=== PATIENT | female | born 1965 | race Caucasian/White ===

== ENCOUNTER 2017-08-21 18:59 | Emergency (ER) | payer BC ==
[2017-08-21 19:35] VITALS: BP 134/70; PULSE 91; RESP 18; TEMP 98.1
--- NOTE | 2017-08-21 20:07 | ED ---
General Adult HPI - General Chief complaint: Fall Stated complaint: left arm injury from fall Time Seen by Provider: 08/21/17 19:56 Source: patient, RN notes reviewed Mode of arrival: ambulatory Limitations: no limitations - History of Present Illness Initial comments: Patient is a 51-year-old female who presents emergency room today with a chief complaint of an injury to the left wrist and elbow area. She does admit that she tripped earlier on outstretched arm. She states that she's having tenderness to this area worse with movements. She denies any head injury or loss conscious. Denies any other complaints or associated symptoms. Patient denies any recent fever, chills, shortness of breath, chest pain, back pain, abdominal pain, nausea or vomiting, numbness or tingling, dysuria or hematuria, constipation or diarrhea, headaches or visual changes, or any other complaints. - Related Data Previous Rx's Medication Instructions Recorded Hydrocodone/Acetaminophen [[place] 1 each PO Q6HR PRN #20 tab 08/21/17 5325] Allergies Allergy/AdvReac Type Severity Reaction Status Date / Time No Known Allergies Allergy Verified 08/21/17 19:35 Review of Systems ROS Statement: Those systems with pertinent positive or pertinent negative responses have been documented in the HPI. ROS Other: All systems not noted in ROS Statement are negative. Past Medical History Past Medical History: No Reported History History of Any Multi-Drug Resistant Organisms: None Reported Past Surgical History: Cholecystectomy Past Psychological History: No Psychological Hx Reported Smoking Status: Former smoker Past Alcohol Use History: None Reported Past Drug Use History: None Reported General Exam - General Exam Comments Initial Comments: General: The patient is awake and alert, in no distress, and does not appear acutely ill. Neck: The neck is supple, there is no tenderness or JVD. Cardiovascular: There is a regular rate and rhythm. No murmur, rub or gallop is appreciated. Respiratory: Lungs are clear to auscultation, respirations are non-labored, breath sounds are equal. No wheezes, stridor, rales, or rhonchi. Musculoskeletal: Patient does have normal appearance of left wrist with no obvious deformity. Shows limited range of motion both flexion and extension due to pain. She does have tenderness over the distal radius. Does have tenderness over the proximal radius along with the medial aspect of left elbow. No tenderness to the humerus or left shoulder. No tenderness down to the left hand sensations are intact pulses equal bilaterally 2+. Neurological: A&O x 3. CN II-XII intact, There are no obvious motor or sensory deficits. Coordination appears grossly intact. Speech is normal. Skin: Skin is warm and dry and no rashes or lesions are noted. Psychiatric: Normal mood and affect. Limitations: no limitations Course Vital Signs 08/21/17 19:32 Temperature 98.1 F Pulse Rate 91 Respiratory 18 Rate Blood Pressure 134/70 O2 Sat by Pulse 98 Oximetry Medical Decision Making - Medical Decision Making X-rays reviewed does show radial head nondisplaced fracture. Patient has been splinted in a long arm posterior OCL splint given arm sling to go home with. Advised follow-up with orthopedics over the next 2 days. Disposition Clinical Impression: Elbow fracture, left Disposition: HOME SELF-CARE Condition: Good Instructions: Elbow Fracture in Adults (ED) Additional Instructions: Please see splinted in place until follow-up with orthopedics over the next 2 days. Please use arm sling when up and moving around. Please continue to ice elevate the affected area and return here to the emergency room symptoms increase or worsen or for any other concerns. Prescriptions: Hydrocodone/Acetaminophen [[place] 5-325] 1 each PO Q6HR PRN #20 tab PRN Reason: Pain Referrals: Arsalan Cleary MD [Primary Care Provider] - 1-2 days Garland Pinto MD [STAFF PHYSICIAN] - 1-2 days Time of Disposition: 20:41
--- NOTE | 2017-08-21 20:24 | XR ---
EXAMINATION TYPE: XR elbow complete LT, XR forearm LT DATE OF EXAM: 08/21/2017 CLINICAL HISTORY: pain TECHNIQUE: Frontal, lateral and oblique images of the left elbow are obtained. 2 views of the left f orearm are also submitted. COMPARISON: None. FINDINGS: Mildly comminuted and mildly displaced radial head fracture. No additional fracture seen. P athologic fat pad noted. The overlying soft tissue appears unremarkable. IMPRESSION: Mildly comminuted and mildly displaced radial head fracture. ICD 10 closed FRACTURE, INITIAL EVALUATION
--- NOTE | 2017-08-21 20:25 | XR ---
EXAMINATION TYPE: XR wrist complete LT DATE OF EXAM: 08/21/2017 CLINICAL HISTORY: pain TECHNIQUE: Frontal, lateral and oblique images of the left wrist are obtained. COMPARISON: None. FINDINGS: There is no acute fracture/dislocation evident. The joint spaces appear within normal bermudez its. The overlying soft tissue appears unremarkable. IMPRESSION: There is no acute fracture or dislocation seen. ICD 10 NO FRACTURE, INITIAL EVALUATION
== END 2017-08-21 21:05 | disposition home or self-care (01) ==
LOC: EC 18:59
DX: S52.125A Nondisplaced fracture of head of left radius, initial encounter for closed fracture (principal); Z87.891 Personal history of nicotine dependence; W01.0XXA Fall on same level from slipping, tripping and stumbling without subsequent striking against object, initial encounter; Y93.01 Activity, walking, marching and hiking
CPT/HCPCS: 29105; 99283

== ENCOUNTER 2020-05-12 09:41 | Day surgery (SDC) | payer BC ==
[2020-05-10 11:51] VITALS: BMI 38.8
[~2020-05-12 09:41] MED LIST: LACTATED RINGERS 1,000 ML IV SCH
[2020-05-12] MEDS ORDERED: LIDOCAINE 1% (10MG/ML) FOR IV START INTRADERMA ONE (10:17)
[2020-05-12 10:20] VITALS: RESP 16; TEMP 96.9
[2020-05-12] MEDS ORDERED: PROPOFOL 10 MG/ML 20 ML VIAL IV ONE (10:32)
--- NOTE | 2020-05-12 11:11 | P.PCN ---
Date of Procedure: 05/12/20 Description of Procedure: BRIEF HISTORY: Patient is a 54-year-old female presenting for outpatient colonoscopy for a positive Cologard. No prior colonoscopy. No change in bowel habits, blood per rectum or abdominal. PROCEDURE PERFORMED: Colonoscopy with polypectomy. PREOPERATIVE DIAGNOSIS: Positive Cologard, no prior colonoscopy. ESTIMATED BLOOD LOSS: Minimal. IV sedation per Anesthesia. PROCEDURE: After informed consent was obtained, the patient, was brought into the endoscopy unit. IV sedation was administered by Anesthesia under continuous monitoring. Digital rectal examination was normal. Initially the Olympus CF-190 flexible video colonoscope was then inserted in the rectum, gradually advanced into the cecum without any difficulty. Careful examination was performed as the scope was gradually being withdrawn. Ileocecal valve and the appendiceal orifice were visualized and appeared normal. Prep was excellent. Mucosa of the cecum, ascending colon, transverse colon, descending colon, sigmoid colon, and rectum appeared normal. A small 3 mm descending colon polyp removed with cold forceps polypectomy. Diminutive 2 mm ascending colon polyp removed with cold forcep polypectomy. Diminutive 2 mm transverse colon polyp removed with cold forcep polypectomy. 3 diminutive rectal polyp was 2 mm in size. Polypectomy. Pedunculated 4 mm sigmoid colon polyp removed with hot snare polypectomy. Retroflexion was performed in the rectum and no lesions were seen. The patient tolerated the procedure well. IMPRESSION: Pedunculated sigmoid colon polyp removed with hot snare polypectomy. 6 diminutive polyps removed from the colon, ascending colon, transverse colon and rectum with forcep polypectomy. RECOMMENDATIONS: Findings of this examination were discussed with the patient. Okay to resume diet. Okay to resume medication. Await colon. From polypectomy. Would recommend repeat colonoscopy in 3 years for high-risk colonic polyps pending pathology..
[2020-05-12 11:27] VITALS: BP 131/63; PULSE 73
== END 2020-05-12 12:11 | disposition home or self-care (01) ==
LOC: ORWHC2ENDO 09:41
PROVIDERS: ATTEND Internal Medicine
DX: K63.5 Polyp of colon (principal); D12.3 Benign neoplasm of transverse colon; D12.5 Benign neoplasm of sigmoid colon; K62.1 Rectal polyp; E78.5 Hyperlipidemia, unspecified; E07.9 Disorder of thyroid, unspecified; E66.01 Morbid (severe) obesity due to excess calories; Z87.891 Personal history of nicotine dependence; Z79.890 Hormone replacement therapy; Z79.899 Other long term (current) drug therapy; Z90.49 Acquired absence of other specified parts of digestive tract; Z90.89 Acquired absence of other organs; Z68.39 Body mass index [BMI] 39.0-39.9, adult
CPT/HCPCS: 88305; 45385; 45380; J2704

== ENCOUNTER → 2023-06-24 | Outpatient (CLI) | payer OTHER ==
--- NOTE | 2023-06-24 11:57 | MM ---
Reason for Exam: Screening (asymptomatic). Patient History: Menarche at age 11. First Full-Term at age 16. Postmenopausal. Risk Values: Clare 5 year model risk: 1.0%. NCI Lifetime model risk: 5.5%. Tissue Density: The breast tissue is almost entirely fat. Findings: Analyzed By CAD. There is no suspicious group of microcalcifications or new suspicious mass in either breast. Overall Assessment: Negative, BI-RAD 1 Management: Screening Mammogram of both breasts in [address] [facility] will attempt to contact patient to return for supplemental views and ultrasound if indicated. Patient should continue monthly self-breast exams. A clinical breast exam by your physician is recommended on an annual basis. This exam should not preclude additional follow-up of suspicious palpable abnormalities. Note on Clare scores and lifetime risk: 1. A Clare score greater than 3% is considered moderate risk. If this is the case, consider specialist referral to assess eligibility for a risk reducing agent. 2. If overall lifetime risk for the development of breast cancer is 20% or higher, the patient may qualify for future screening with alternating mammogram and breast MRI. Electronically signed and approved by: Levar Thibodeaux DO
== END | disposition home or self-care (01) ==
LOC: RADMAMWWP 10:46
PROVIDERS: ATTEND Family Medicine
DX: Z12.31 Encounter for screening mammogram for malignant neoplasm of breast (principal); Z78.0 Asymptomatic menopausal state
CPT/HCPCS: 77067

== ENCOUNTER 2024-05-08 07:41 | Day surgery (SDC) | payer OTHER ==
[2024-05-08 08:06] VITALS: TEMP 97.1
[2024-05-08] MEDS: LACTATED RINGERS 1,000 ML IV SCH (08:06)
[2024-05-08] MEDS: IV FLUID CONTINUATION 1,000 ML IV ONE (08:06)
[2024-05-08 08:14] LABS: Glucose,Whole Blood 146 mg/dL (70-110)
[2024-05-08] MEDS ORDERED: PROPOFOL 10 MG/ML 20 ML VIAL IV ONE (08:54)
--- NOTE | 2024-05-08 09:12 | P.PCN ---
Date of Procedure: 05/08/24 Procedure(s) Performed: BRIEF HISTORY: Patient is a 58-year-old pleasant white female scheduled for an elective colonoscopy as a part of patient by history of colon polyps Last colonoscopy was 4 years ago. PROCEDURE PERFORMED: Colonoscopy biopsy. PREOPERATIVE DIAGNOSIS: History of t colon polyps. IV sedation per Anesthesia. PROCEDURE: After informed consent was obtained, the patient, was brought into the endoscopy unit. IV sedation was administered by Anesthesia under continuous monitoring. Digital rectal examination was normal. Initially the Olympus CF-160 flexible video colonoscope was then inserted in the rectum, gradually advanced into the cecum without any difficulty. Careful examination was performed as the scope was gradually being withdrawn. Ileocecal valve and the appendiceal orifice were visualized and appeared normal. Prep was excellent. Mucosa of the cecum, ascending colon, transverse colon, descending colon, sigmoid colon, and rectum appeared normal. In the sigmoid colon there was a 3 mm polyp that was removed by cold biopsy. Retroflexion was performed in the rectum and no lesions were seen. The patient tolerated the procedure well. IMPRESSION: 3 mm proximal sigmoid colon polyp status post cold biopsy Rest of the colon appeared normal RECOMMENDATIONS: Findings of this examination were discussed with the patient she was advised to follow-up with the biopsy results and have repeat colonoscopy in 5 years because of the prior history of large colon polyps..
[2024-05-08 09:15] VITALS: RESP 16
[2024-05-08 09:34] VITALS: BP 151/69; PULSE 67
== END 2024-05-08 09:47 | disposition home or self-care (01) ==
LOC: ORWHC2ENDO 07:41
PROVIDERS: ATTEND Internal Medicine Gastroenterology
DX: Z12.11 Encounter for screening for malignant neoplasm of colon (principal); D12.5 Benign neoplasm of sigmoid colon; I10 Essential (primary) hypertension; E78.5 Hyperlipidemia, unspecified; E11.9 Type 2 diabetes mellitus without complications; E03.9 Hypothyroidism, unspecified; Z79.84 Long term (current) use of oral hypoglycemic drugs; Z86.010 Personal history of colon polyps; Z79.890 Hormone replacement therapy; Z79.899 Other long term (current) drug therapy; Z90.49 Acquired absence of other specified parts of digestive tract; Z98.890 Other specified postprocedural states
CPT/HCPCS: 88305; 45380; J2704

== ENCOUNTER → 2024-09-15 | Outpatient (CLI) | payer OTHER ==
[2024-09-15 15:54] LABS: African American GFR (CKD) 89 (>60 ml/min/1.73 sqM); Blood Urea Nitrogen 17 mg/dL (7-17); Non-African American GFR(CKD) 77 (>60 ml/min/1.73 sqM)
--- NOTE | 2024-09-18 20:35 | CT ---
EXAMINATION TYPE: CT urogram wo/w con DATE OF EXAM: 09/15/2024 COMPARISON: None INDICATION: Hematuria x 2 months DLP: 4027 mGycm, Automated exposure control for dose reduction was used. CONTRAST: 100 mL of Isovue 370. Study performed TECHNIQUE: Axial images were obtained from above the diaphragm to the pubic rami in the axial plane a t 5 mm thick sections. Reconstructed images are reviewed on the computer in the coronal plane. FINDINGS: Kidneys appear symmetrical. There is a calcification at the superior medial right kidney measuring 0. 5 cm. No hydronephrosis is evident no hydroureter is evident. Delayed images were obtained through th e kidneys and renal collecting systems ureters follow a normal caliber course and contour to the urin juvencio bladder. Limited CT sections are obtained the lung bases. The lung bases are clear. CT ABDOMEN: Liver: Normal Spleen: Multiple scattered calcified granulomata within the spleen Pancreas: Normal Adrenal glands: The adrenal glands are normal. Gallbladder: Surgically absent Kidneys: No masses are evident. No hydronephrosis is present. No cysts are present. Delayed images were obtained through the kidneys, which remain unremarkable. Aorta: Vascular calcification is within the aorta. Inferior vena cava: Normal. CT PELVIS: Loops of bowel within the abdomen and pelvis are normal. There are loops of bowel which are incom pletely distended or lack oral contrast limiting their evaluation. Appendix: Normal as visualized. Urinary bladder: Normal. Genitourinary structures: Uterus appears unremarkable. Adnexa are normal. Osseous structures: No suspicious lytic or sclerotic lesions. IMPRESSION: 1. Nonobstructing right mid renal stone. 2. No hydronephrosis or hydroureter. 3. Urinary bladder appears normal. 4. Follow-up exams can be performed as clinically indicated. [facility], , 09/18/2024 8:32 PM
== END | disposition home or self-care (01) ==
LOC: RADCTMAIN 14:59
PROVIDERS: ATTEND Urology
DX: N20.0 Calculus of kidney (principal); N28.89 Other specified disorders of kidney and ureter; R31.0 Gross hematuria
CPT/HCPCS: 82565; 84520; 74178; 36415; 74400; Q9967

== ENCOUNTER → 2025-03-05 | Outpatient (CLI) | payer OTHER ==
[2025-03-05 11:40] LABS: African American GFR (CKD) 55 (>60 ml/min/1.73 sqM); Blood Urea Nitrogen 25 mg/dL (7-17); Non-African American GFR(CKD) 48 (>60 ml/min/1.73 sqM)
--- NOTE | 2025-03-05 14:39 | CT ---
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 CONTRAST: CT scan of the chest, abdomen and pelvis is performed with Oral Contrast and with IV Contrast, patien t injected with 80 mL of Isovue 300. FINDINGS: CT chest: There is no suspicious lung mass or nodule. There is no abnormal airspace/consolidative density or abnormal interstitial density. There is no pleural effusion, pleural thickening or pneumothorax. The great vessels and chest are normal there is no mediastinal, hilar or axillary adenopathy. No focal osseous lesions are seen. CT abdomen and pelvis: The gallbladder is surgically absent. There is no biliary ductal dilatation. There is no focal mass or organomegaly involving the liver, pancreas, spleen or adrenal glands. There are multiple splenic granulomas. There is no solid renal mass or hydronephrosis. There is a nonobstructing 5.5 mm right renal calculus . There is no retroperitoneal adenopathy or hemorrhage in the caliber of the abdominal aorta is normal. The bowel loops are normal in caliber and there is no dilatation or obstruction. No inflammatory georges ges identified in the bowel wall and mesentery. There is no free intracranial air or fluid. There is no pelvic mass or adenopathy. There is no free fluid within the pelvis. There is diffuse thickening of the urinary bladder wall. The marked right lateral urinary bladder wal l thickening/mass seen on the prior study is not clearly apparent on the current study and may be sec ondary to treatment. There is mild inflammatory change in the perivesical fat and pelvic fat. No focal osseous lesions are seen. Soft tissue the abdomen and pelvis are normal. IMPRESSION: 1. No evidence of metastatic disease to the chest. 2. Stable nonobstructing 5.5 mm right renal calculus. 3. Right lateral urinary bladder wall thickening/mass not. On the current study although there is dif fuse urinary bladder wall thickening and inflammatory changes in the perivesical fat. Changes appear to represent changes secondary to treatment for bladder cancer. 4. No metastatic disease within the abdomen or pelvis. [facility], Workstation: JUAN PABLO, 03/05/2025 2:37 PM
== END | disposition home or self-care (01) ==
LOC: RADCTMAIN 10:54
PROVIDERS: ATTEND Internal Medicine Hematology & Oncology
DX: C67.2 Malignant neoplasm of lateral wall of bladder (principal); N20.0 Calculus of kidney; E03.9 Hypothyroidism, unspecified; E11.9 Type 2 diabetes mellitus without complications; I10 Essential (primary) hypertension; N32.89 Other specified disorders of bladder
CPT/HCPCS: 82565; 84520; 71260; 74177; 36415; Q9967

== ENCOUNTER → 2025-04-28 | Outpatient (CLI) | payer OTHER ==
--- NOTE | 2025-04-29 10:09 | MR ---
EXAMINATION TYPE: MR lumbar spine wo con DATE OF EXAM: 04/28/2025 7:38 PM COMPARISON: 04/13/2025. CLINICAL INDICATION: Female, 59 years old with history of M54.16,M54.50,Q76.0,M43.26; PHH, low back p ain that radiates down right leg. TECHNIQUE: Multi planar, multi sequence imaging was performed utilizing: T1-weighted, T2-weighted, a nd turbo inversion recovery imaging of the lumbar spine. IV Contrast: mL (None, if empty) FINDINGS: Alignment: The lumbar vertebral bodies have preserved heights and alignment. Transitional vertebrae is present Cord: The conus medullaris and the distal spinal cord appear unremarkable with regards to their signa l intensity and morphology. Bones/Discs: Bone marrow reconversion of the more superior vertebrae with fatty infiltration of L3-S1 . Mild degeneration changes throughout the spine with osteophyte formation and facet joint arthropath y. Intervertebral disc signal is maintained. No abnormal inversion recovery signal to suggest bony ed romina. T12-L1: No evidence of significant spinal canal stenosis or neural foraminal stenosis. L1-L2: No evidence of significant spinal canal stenosis or neural foraminal stenosis. L2-L3: No evidence of significant spinal canal stenosis or neural foraminal stenosis. L3-L4: No evidence of significant spinal canal stenosis or neural foraminal stenosis. L4-L5: No evidence of significant spinal canal stenosis or neural foraminal stenosis. L5-S1: The disc has a rounded posterior morphology without significant spinal canal stenosis. Facet j oint arthropathy with mild bilateral neural foraminal stenosis. No significant spinal canal or neural foraminal stenosis in the remainder of the visualized levels. Other findings: None. IMPRESSION: 1. No definitive evidence of disc herniation or significant spinal canal stenosis. 2. Mild disc degeneration with associated osteoarthritic changes. No evidence for high-grade stenosi s or right-sided finding to correlate patient's symptoms. 3. Red marrow replacement of L2 and superior. [facility], , 04/29/2025 10:07 AM
== END | disposition home or self-care (01) ==
LOC: RADMRIMAIN 18:59
PROVIDERS: ATTEND Orthopaedic Surgery
DX: M51.16 Intervertebral disc disorders with radiculopathy, lumbar region (principal); D61.89 Other specified aplastic anemias and other bone marrow failure syndromes; Q76.0 Spina bifida occulta
CPT/HCPCS: 72148